=== PATIENT | female | born 1945 | race Caucasian/White ===

== ENCOUNTER → 2018-04-25 | Emergency (ER) | payer MEDICARE, OTHER ==
[~2018-04-25] VITALS: Ht 167.6 cm; Wt 70.5 kg
[~2018-04-25] MED LIST: AZIT250T PO; LIDOcaine 1% w/epiNEPHrine 1:200,000 30ml vial IM ONE; TETanus/Pertussis (Acell)/Diphther VAC/PF (Tdap-Adult) 0.5ml syringe IM ONE
[2018-04-25 22:55] VITALS: BP 167/103
== END | disposition home or self-care (01) ==
LOC: ER 21:15
DX: S01.112A Laceration without foreign body of left eyelid and periocular area, initial encounter (principal); I10 Essential (primary) hypertension; W18.30XA Fall on same level, unspecified, initial encounter; Y93.89 Activity, other specified; Y92.89 Other specified places as the place of occurrence of the external cause; Y99.8 Other external cause status
CPT/HCPCS: 12052; 70450; 90471; 90715; 99284; J3490

== ENCOUNTER 2019-08-22 18:45 | Emergency (ER) | payer MEDICARE, OTHER ==
[~2019-08-22] VITALS: Ht 167.6 cm; Wt 71.2 kg
[~2019-08-22 18:45] MED LIST changes: -LIDOcaine 1% w/epiNEPHrine 1:200,000 30ml vial IM ONE; -TETanus/Pertussis (Acell)/Diphther VAC/PF (Tdap-Adult) 0.5ml syringe IM ONE
--- NOTE | 2019-08-22 18:55 | NUR ---
Md Sánchez is evaluating the pt in the triage box.
[2019-08-22] MEDS ORDERED: predniSONE 20 mg tablet PO ONE (19:00)
[2019-08-22] MEDS ORDERED: ACYC-202 PO (19:02)
[2019-08-22] MEDS ORDERED: PRED20TA PO (19:02)
[2019-08-22 19:18] VITALS: BP 164/100
== END 2019-08-22 19:17 | disposition home or self-care (01) ==
LOC: ER 18:46
DX: G51.0 Bell's palsy (principal); I10 Essential (primary) hypertension; Z60.2 Problems related to living alone; Z85.9 Personal history of malignant neoplasm, unspecified; Z79.2 Long term (current) use of antibiotics; Z79.899 Other long term (current) drug therapy
CPT/HCPCS: 99283; J7512